=== PATIENT | female | born 1955 | race Caucasian/White ===

== ENCOUNTER 2017-04-26 17:29 | Emergency (ER) | payer OTHER ==
--- NOTE | ~2017-04-26 | CR72 ---
[facility] A Service of [facility] & [facility] RADIOLOGY TEXT RESULTS PATIENT: BRINANA HOANG LOCATION: [facility] : 55 UNIT #: [id number] AGE: [address]: Therese Douglass MD SEX: F ORDER DR: [id number] [facility] [address] [place], [place] [address] [id number] E MR#: [id number] Acc #: [id number] NAME: BRIANNA HOANG. : 1955 SEX: F STUDY DATE/TIME: 04/26/2017 18:09 UNIT: [facility] ROOM: STUDY DESCRIPTION: CR Chest Single View Portable Attending Physician: Therese Douglass M.D. Ordering Physician: Therese Douglass M.D. Primary Care Physician: Primary Care Physician No MEDICAL IMAGING REPORT This report is preliminary unless electronic signature is present EXAM Portable chest, 04/26/2017 HISTORY Chlorine gas exposure, inhaled concentrated chlorine while cleaning a pool at 4 p.m. today. Cough and chest congestion. Short of breath. Smoking history for 40 years. FINDINGS A single AP portable view of the chest shows both lungs to be clear. The heart is normal in size. The mediastinal contour is normal. No significant bone abnormalities are seen. IMPRESSION Normal portable chest. Dictated by... Wayne Fitzgerald M.D. THIS IS AN ELECTRONICALLY VERIFIED REPORT Wayne Fitzgerald M.D. at 04/27/2017 10:38 AM JEREMI/yany TD: 04/27/2017 04:17 JOB #: [id number] MEDICAL IMAGING REPORT Page 1 of 1 COPY
[~2017-04-26 17:29] MED LIST: IBUPROFEN800 MG PO; KETOPROFEN PO; LORTAB 5/500 TA1 TA1 PO; ULTRAM PO
[2017-04-26 18:28] LABS: BASOPHIL# 0.1 X10e3 (0-0.3); BASOPHIL% 0.8 % (0-2.5); EOSINOPHIL# 0.2 X10e3 (0-0.7); EOSINOPHIL% 1.9 % (0.0-7.0); HEMATOCRIT 46.7 % (35.0-45.0); HEMOGLOBIN 15.7 gm/dL (12.0-16.0); LYMPHOCYTE# 2.2 X10e3 (1.0-3.5); MEAN CELL VOLUME 93.9 FL (83-96); MEAN CORPUSCULAR HEMOGLOBIN 31.7 PG (28-34); MEAN CORPUSCULAR HGB CONC 33.7 g/dL (30-36); MEAN PLATELET VOLUME 8.7 FL (6.5-11.5); MONOCYTE# 0.5 X10e3 (0-1.0); MONOCYTE% 4.6 % (3.0-12.0); NEUTROPHIL% 70.7 % (40-75); PLATELET COUNT 168 X10e3 (140-420); RED BLOOD COUNT 4.97 X10e (3.90-5.30); RED CELL DISTRIBUTION WIDTH 12.4 % (11.0-15.5); WHITE BLOOD COUNT 9.9 X10e3 (4.0-10.5)
[2017-04-26 18:29] LABS: DIFF IND NO
[2017-04-26 18:50] LABS: ALBUMIN SERUM 4.2 g/dL (3.5-5.0); BILIRUBIN, DIRECT 0.1 mg/dL (0.0-0.2); BILIRUBIN,INDIRECT 0.4 mg/dL (0.0-0.9); BILIRUBIN,TOTAL 0.5 mg/dL (0.2-2.0); CALCIUM SERUM 9.2 mg/dL (8.4-10.2); GLOM FILT RATE Estimated 60.8 mL/min (>60); POTASSIUM 4.1 mmol/L (3.5-5.1); PROTEIN TOTAL SERUM 7.4 g/dL (6.0-8.3)
== END 2017-04-26 20:29 | disposition home or self-care (01) ==
LOC: CED 17:29
PROVIDERS: Emergency Medicine
DX: Z77.098 Contact with and (suspected) exposure to other hazardous, chiefly nonmedicinal, chemicals (principal); I50.9 Heart failure, unspecified; F17.210 Nicotine dependence, cigarettes, uncomplicated; Z88.5 Allergy status to narcotic agent
CPT/HCPCS: 36415; 71010; 80048; 80076; 85025; 96360; 99284

== ENCOUNTER 2017-06-09 23:17 | Emergency (ER) | payer SELFPAY ==
--- NOTE | ~2017-06-09 | CT4 ---
[facility] A Service [facility] RADIOLOGY TEXT RESULTS PATIENT: BRIANNA HOANG LOCATION: SED : 55 UNIT #: [id number] AGE: [address]: Kirit Mercado MD SEX: F ORDER DR: [id number] [address] [address] [id number] E MR#: [id number] Acc #: [id number] NAME: BRIANNA HOANG : 1955 SEX: F STUDY DATE/TIME: 06/10/2017 2:07 UNIT: SED ROOM: STUDY DESCRIPTION: CT Abd and Pelv Wo Cont Attending Physician: Kirit Mercado M.D. Ordering Physician: Kirit Mercado M.D. Primary Care Physician: Primary Care Physician No MEDICAL IMAGING REPORT This report is preliminary unless electronic signature is present. EXAM CT abdomen and pelvis without contrast INDICATION Left flank pain, nausea and vomiting for 3 weeks. COMPARISON 07/04/2010 TECHNIQUE Axial 3 mm images were obtained through the abdomen and pelvis without IV or oral contrast. This CT exam was performed with one or more of the following radiation dose reduction techniques: automatic exposure control, adjustment of mA and/or kV according to patient size, and iterative reconstruction. FINDINGS The lung bases are clear. The liver, gallbladder, spleen, pancreas and adrenal glands are normal. The right kidney is normal. The left kidney has an exophytic posterior cyst measuring 2 cm in diameter. The aorta is normal in size and there is no adenopathy. The bowel appears normal. I do not see any evidence of appendicitis. The uterus has been removed. There are no adnexal masses. The bladder is normal. The bones show mild degenerative changes. IMPRESSION 1. There is no CT evidence of appendicitis. 2. Incidental left renal cyst which needs no further followup. 3. Otherwise normal. [facility] A Service [facility] RADIOLOGY TEXT RESULTS PATIENT: BRIANNA HOANG LOCATION: SED : 55 UNIT #: [id number] AGE: [address]: Kirit Mercado MD SEX: F ORDER DR: Dictated by... Olman Herrera M.D. THIS IS AN ELECTRONICALLY VERIFIED REPORT Olman Herrera M.D. at 06/10/2017 5:53 AM INDRA/yany TD: 06/10/2017 03:27 JOB #: [id number] MEDICAL IMAGING REPORT Page 1 of 1
[2017-06-09] MEDS ORDERED: STATIN DRUG (23:50)
[2017-06-09] MEDS ORDERED: GLUCOPHAGE500 MG PO (23:50)
[2017-06-09] MEDS ORDERED: GABAPENTIN300 MG PO (23:51)
[2017-06-10 01:42] LABS: BASOPHIL# 0.1 X10e3 (0-0.3); BASOPHIL% 0.9 % (0-2.5); EOSINOPHIL# 0.2 X10e3 (0-0.7); EOSINOPHIL% 1.4 % (0.0-7.0); HEMATOCRIT 46.1 % (35.0-45.0); HEMOGLOBIN 15.5 gm/dL (12.0-16.0); LYMPHOCYTE% 25.7 % (17.0-45.0); MEAN CELL VOLUME 94.7 FL (83-96); MEAN CORPUSCULAR HEMOGLOBIN 31.9 PG (28-34); MEAN CORPUSCULAR HGB CONC 33.6 g/dL (30-36); MEAN PLATELET VOLUME 9.3 FL (6.5-11.5); MONOCYTE# 0.7 X10e3 (0-1.0); MONOCYTE% 5.9 % (3.0-12.0); NEUTROPHIL# 7.8 X10e3 (1.5-7.1); NEUTROPHIL% 66.1 % (40-75); PLATELET COUNT 191 X10e3 (140-420); RED BLOOD COUNT 4.87 X10e (3.90-5.30); RED CELL DISTRIBUTION WIDTH 12.7 % (11.0-15.5); WHITE BLOOD COUNT 11.8 X10e3 (4.0-10.5)
[2017-06-10 01:44] LABS: URINE SOURCE CLEAN CATCH
[2017-06-10 01:45] LABS: DIFF IND NO
[2017-06-10 01:46] LABS: URINE APPEARANCE CLEAR; URINE BILIRUBIN NEG (NEG); URINE BLOOD NEG (NEG); URINE COLOR YELLOW; URINE GLUCOSE 100 MG/DL (NORM); URINE KETONE NEG (NEG); URINE LEUKOCYTE ESTERASE NEG (NEG); URINE NITRATE POS (NEG); URINE PH 5.5 (5-8); URINE PROTEIN TRACE (NEG); URINE SPECIFIC GRAVITY >=1.030 (1.003-1.035); URINE UROBILINOGEN 0.2 MG/DL (NORM)
[2017-06-10 01:47] LABS: MICRO INDICATED? YES
[2017-06-10 01:52] LABS: CULTURE INDICATED? YES; URINE BACTERIA 1+ (NEG); URINE RBC 0-2 /[HPF] (0-2); URINE SQUAMOUS EPITHELIAL CELL OCCAS /[HPF]
[2017-06-10 01:52] LABS: CALCIUM SERUM 9.5 mg/dL (8.4-10.2); CREATININE SERUM 0.8 mg/dL (0.6-1.4); GLOM FILT RATE Estimated 79.6 mL/min (>60)
== END 2017-06-10 03:10 | disposition home or self-care (01) ==
LOC: SED 23:17
PROVIDERS: Emergency Medicine
DX: N39.0 Urinary tract infection, site not specified (principal); E11.9 Type 2 diabetes mellitus without complications; F17.200 Nicotine dependence, unspecified, uncomplicated; Z88.5 Allergy status to narcotic agent; Z79.84 Long term (current) use of oral hypoglycemic drugs; Z79.899 Other long term (current) drug therapy
CPT/HCPCS: 36415; 74176; 80048; 81003; 85025; 87086; 87088; 87186; 99284

== ENCOUNTER → 2017-07-05 | Outpatient (CLI) | payer OTHER ==
[~2017-07-05] MED LIST changes: +GABAPENTIN300 MG PO; +GLUCOPHAGE500 MG PO; +STATIN DRUG
--- NOTE | ~2017-07-05 | CR63 ---
[facility]. [facility] A Service of [facility] & [facility] RADIOLOGY TEXT RESULTS PATIENT: BRIANNA HOANG LOCATION: [facility] : 55 UNIT #: [id number] AGE: [address]: Ladan Abbott SEX: F ORDER DR: [id number] [address] [address] [id number] O MR#: [id number] Acc #: [id number] NAME: BRIANNA HOANG : 1955 SEX: F STUDY DATE/TIME: 07/05/2017 9:48 UNIT: [facility] ROOM: STUDY DESCRIPTION: CR Chest 2 View Attending Physician: Ladan Abbott A.P.R.N. Referring Physician: Ladan Abbott A.P.R.N. Ordering Physician: Ladan Abbott A.P.R.N. Primary Care Physician: Ladan Abbott A.P.R.N. MEDICAL IMAGING REPORT This report is preliminary unless electronic signature is present. EXAM Chest, 07/05/2017, [facility]. HISTORY 61-year-old female with pain left side of back going around to the front, 3 months duration. Stabbing pain with coughing. No known injury. COMPARISON Chest 04/26/2017. FINDINGS PA and lateral chest views show normal stable cardiac size and configuration. Hilar structures and mediastinal contours are preserved. The bilateral lungs are expanded and clear. Costophrenic angles are clear. Degenerative thoracic marginal osteophytes with no thoracic compression fractures. IMPRESSION Negative chest. No acute chest finding. Dictated by... Ortiz Tello M.D. THIS IS AN ELECTRONICALLY VERIFIED REPORT Ortiz Tello M.D. at 07/06/2017 8:08 AM JOSEPHINE/[email or web address] TD: 07/05/2017 16:58 JOB #: [id number] MEDICAL IMAGING REPORT Page 1 of 1
== END | disposition home or self-care (01) ==
LOC: SRAD 09:40
DX: M54.9 Dorsalgia, unspecified (principal)
CPT/HCPCS: 71020